=== PATIENT | male | born 1965 | race Caucasian/White ===

== ENCOUNTER 2018-12-08 06:56 | Emergency (ER) | payer SELFPAY ==
[~2018-12-08] VITALS: Ht 182.9 cm; Wt 72.6 kg
[2018-12-08 07:30] VITALS: BP 129/86
[2018-12-08] MEDS ORDERED: KETOROLAC TROMETH 60MG/2ML VIAL IM ONE (07:30)
== END 2018-12-08 08:17 | disposition home or self-care (01) ==
LOC: ER 06:56
DX: S39.011A Strain of muscle, fascia and tendon of abdomen, initial encounter (principal); M25.551 Pain in right hip; F17.210 Nicotine dependence, cigarettes, uncomplicated; X50.0XXA Overexertion from strenuous movement or load, initial encounter; Y93.89 Activity, other specified; Y92.89 Other specified places as the place of occurrence of the external cause; Y99.8 Other external cause status
CPT/HCPCS: 73502; 96372; 99283; J1885